=== PATIENT | female | born 1990 | race Two or more races ===

== ENCOUNTER 2017-04-23 08:25 | Outpatient (CLI) | payer OTHER ==
[~2017-04-23] VITALS: Ht 152.4 cm; Wt 72.6 kg
[~2017-04-23 08:25] MED LIST: PERCOCET 5/31 TABLET PO
[2017-04-23 08:56] VITALS: BP 119/83
[2017-04-23 09:37] VITALS: BP 119/67
[2017-04-23 10:43] VITALS: BP 124/78
[2017-04-23 10:50] LABS: AMPHETAMINE NEGATIVE (500 ng/mL); BARBITURATES NEGATIVE (200 ng/mL); BENZODIAZEPINES NEGATIVE (150 ng/mL); BUPRENORPHINE NEGATIVE (10 ng/mL); COCAINE NEGATIVE (150 ng/mL); METHADONE NEGATIVE (200 ng/mL); METHAMPHETAMINE NEGATIVE (500 ng/mL); OPIATES (MORPHINE) NEGATIVE (100 ng/mL); OXYCODONE NEGATIVE (100 ng/mL); PHENCYCLIDINE NEGATIVE (25 ng/mL); PROPOXYPHENE NEGATIVE (300 ng/mL); THC CANNABINOIDS PRESUMPTIVE POSITIVE (50 ng/mL); TRICYCLIC ANTIDEPRESSANTS NEGATIVE (300 ng/mL)
[2017-04-23] MEDS ORDERED: IBUPROFEN800 MG PO (22:08)
== END 2017-04-23 11:50 | disposition home or self-care (01) ==
LOC: LDRP-OP 08:25 → 2WEST 08:26
PROVIDERS: Midwife
DX: O47.1 False labor at or after 37 completed weeks of gestation (principal); O09.33 Supervision of pregnancy with insufficient antenatal care, third trimester; Z3A.39 39 weeks gestation of pregnancy
CPT/HCPCS: 59025; 84999; G0378

== ENCOUNTER 2017-04-23 18:32 | Inpatient (IN) | payer OTHER ==
[2017-04-23] VITALS (8 sets, daily range): BP systolic 96–132; BP diastolic 55–79
[~2017-04-23] VITALS: Ht 152.4 cm; Wt 75.2 kg
[2017-04-23 19:33] LABS: BASOPHIL (%) 0.2 % (0-1); BASOPHIL COUNT 0.1 K/uL (0-0.1); EOSINOPHIL (%) 0 % (0-5); HEMATOCRIT 37.4 % (36.0-46.0); HEMOGLOBIN 12.1 G/DL (11.9-15.5); IMMATURE GRANULOCYTE (%) 0.6 % (0.0-0.7); LYMPHOCYTE (%) 6.8 % (15-42); LYMPHOCYTE COUNT 1.5 K/uL (1.0-2.8); MCH 28.5 PG (29.0-34.0); MCHC 32.4 G/DL (30.0-36.0); MONOCYTE (%) 2.7 % (3-12); MONOCYTE COUNT 0.6 K/uL (0-0.8); NEUTROPHIL (%) 89.7 % (45-76); NEUTROPHIL COUNT 20.1 K/uL (1.8-6.4); PLATELET COUNT 366 K/uL (156-360); RBC DIS.WIDTH-CV 13.8 % (11.8-14.6); RBC DIS.WIDTH-SD 44.4 % (39-53); RED BLOOD COUNT 4.25 M/uL (3.80-5.20); WHITE BLOOD COUNT 22.4 K/uL (4.1-10.2)
[2017-04-23] MEDS ORDERED: IBUPROFEN800 MG PO (22:08)
[2017-04-24 06:55] VITALS: BP 108/57
[2017-04-24 22:50] VITALS: BP 120/63
== END 2017-04-25 13:18 | disposition home or self-care (01) | DRG 775 ==
LOC: LDRP-OP 18:32 → 2WEST 18:33 → LDRP-OP 05-24 12:05
PROVIDERS: Midwife
DX: O77.0 Labor and delivery complicated by meconium in amniotic fluid (principal); O69.1XX0 Labor and delivery complicated by cord around neck, with compression, not applicable or unspecified; O99.323 Drug use complicating pregnancy, third trimester; F12.90 Cannabis use, unspecified, uncomplicated; Z3A.39 39 weeks gestation of pregnancy; Z37.0 Single live birth
CPT/HCPCS: 59025; 84999; 85025; G0378; J0595; J7120